=== PATIENT | male | born 1965 | race Caucasian/White ===

== ENCOUNTER 2020-07-21 09:47 | Outpatient (CLI) | payer OTHER, SELFPAY ==
--- NOTE | 2020-07-21 10:07 | XR_ITS ---
WS: [id number] FOOT RIGHT TECHNIQUE: 3 views of the right foot CLINICAL INFORMATION: RIGHT FOOT PAIN COMPARISON: None. FINDINGS: Mild hallux valgus with bunion deformity. Calcified tophi about the first MTP suspicious for gouty ar thritis. Remaining correlation with laboratory markers. No significant erosive changes. Diffuse soft tissue edema in this location. Tiny plantar calcaneal spur. Achilles enthesophyte. XR/XR foot RT min 3V* [id number] IMPRESSION: Soft tissue edema with calcified gouty tophi at the first MTP. Recommend correl ation for gouty arthritis. Associated soft tissue edema.
--- NOTE | 2020-07-21 10:08 | XR_ITS ---
WS: [id number] HAND LEFT TECHNIQUE: 3 views of the left hand CLINICAL INFORMATION: HAND PAIN COMPARISON: None. FINDINGS: Normal metacarpals. Normal MCP joint. Metacarpal heads are normal in appearance. Normal PIP and DIP j oints. No evidence of acute fracture or dislocation. Radiocarpal joint: Normal. Carpal bones: Normal. XR/XR hand LT min 3V* [id number] IMPRESSION: Normal left hand.
--- NOTE | 2020-07-21 10:08 | XR_ITS ---
WS: [id number] WRIST LEFT TECHNIQUE: 3 views of the left wrist CLINICAL INFORMATION: LEFT WRIST PAIN COMPARISON: None. FINDINGS: Normal radiocarpal joint. Scaphoid is normal in appearance. No evidence of radiocarpal dislocation. D istal radius and ulna are normal in appearance. Soft tissue edema dorsal wrist. XR/XR wrist LT min 3V* [id number] IMPRESSION: Soft tissue edema dorsal wrist. Wrist otherwise unremarkable.
== END 2020-07-21 09:48 | disposition home or self-care (01) ==
LOC: RADWPI 09:58
PROVIDERS: PCP Nurse Practitioner Family; Visit Provider Nurse Practitioner Family
DX: M79.671 Pain in right foot (principal); M25.532 Pain in left wrist; M79.642 Pain in left hand; R60.0 Localized edema
CPT/HCPCS: 73110; 73130; 73630